=== PATIENT | male | born 1985 | race Caucasian/White ===

== ENCOUNTER 2021-03-02 13:03 | Inpatient (IN) | payer OTHER ==
[2021-03-02 13:28] LABS: BASO % 0.4 % (0-2.0); EOS % 0.1 % (0-4.5); HEMATOCRIT 53.3 % (35.4-49); HEMOGLOBIN 17.7 GM/dL (11.7-16.9); LYMPH % 12.7 % (8-40); MCH 27.5 pg (25.7-33.7); MCHC 33.2 g/dl (32.0-35.9); MEAN CELL VOLUME 82.9 fl (80-96); MEAN PLT VOLUME 8.5 fl (7.5-11.1); MONO % 2.3 % (3.8-10.2); NEUT % 84.5 % (42.8-82.8); PLATELET COUNT 415 K/MM3 (134-434); RBC 6.43 M/mm3 (4.00-5.60); RDW 17.5 % (11.9-15.9); WHITE BLOOD COUNT 11.4 K/mm3 (4.0-10.0)
[2021-03-02] MEDS ORDERED: LORazepam 2 MG/ML SDV VIAL IVPUSH ONE ×3 (13:30→15:59)
[2021-03-02] MEDS ORDERED: LORazepam 2 MG/ML SDV VIAL ONE ×2 (13:32→15:52)
[2021-03-02] MEDS ORDERED: LACTATED RINGERS SOLUTION 1000 ML INFUS.BAG IV ONE ×2 (13:42→15:39)
[2021-03-02 13:46] LABS: CHLORIDE 102 mmol/L (98-107); POTASSIUM 4.2 mmol/L (3.5-5.1); SODIUM 139 mmol/L (136-145)
[2021-03-02 13:48] LABS: ALBUMIN 3.7 g/dl (3.4-5.0); ANION GAP 18 MMOL/L (8-16); CALCIUM 9.7 mg/dL (8.5-10.1); CO2 19 mmol/L (21-32)
[2021-03-02 13:49] LABS: BLOOD UREA NITROGEN 9.9 mg/dL (7-18); GLUCOSE,RANDOM 169 mg/dL (74-106); MAGNESIUM 2.7 mg/dL (1.8-2.4)
[2021-03-02 13:52] LABS: CREATININE 1.5 mg/dL (0.55-1.3); PHOSPHOROUS 2.4 mg/dL (2.5-4.9); SGOT/AST 35 U/L (15-37); SGPT/ALT 90 U/L (13-61)
[2021-03-02 13:53] LABS: BILIRUBIN,TOTAL 0.4 mg/dL (0.2-1); TOT PROT 7.8 g/dl (6.4-8.2)
[2021-03-02 13:54] LABS: ALK PHOS 77 U/L (45-117)
[2021-03-02] MEDS: SODIUM CHLORIDE 1,000 ML IV SCH (20:04)
[2021-03-02 21:32] LABS: EPI CELLS 13 /uL (0-25.1); HYALINE CASTS 2 /uL (0-3.1); URINE APPEARANCE CLEAR; URINE BACTERIA 4 /uL (0-1359); URINE BILIRUBIN NEGATIVE (NEGATIVE); URINE COLOR YELLOW; URINE GLUCOSE (UA) NEGATIVE (NEGATIVE); URINE KETONE NEGATIVE (NEGATIVE); URINE LEUK ESTERASE NEGATIVE (NEGATIVE); URINE NITRITE NEGATIVE (NEGATIVE); URINE PROTEIN 2+ (NEGATIVE); URINE RBC 20 /uL (0-23.9); URINE WBC 8 /uL (0-25.8)
[2021-03-02 21:55] LABS: COCAINE, UR NEGATIVE ng/ml (CUTOFF=300); METHADONE, UR NEGATIVE ng/ml (CUTOFF=300); URINE BARBITURATES NEGATIVE ng/ml (CUTOFF=200)
[2021-03-02 21:56] LABS: OPIATES, URI NEGATIVE ng/ml (CUTOFF=300); PHENCYCLIDINE,URINE NEGATIVE ng/ml (CUTOFF=25)
[2021-03-02 21:58] LABS: URINE AMPHETAMINES POSITIVE ng/ml (CUTOFF=500); URINE BENZODIAZEPINES POSITIVE ng/ml (CUTOFF=200)
[2021-03-02] MEDS ORDERED: clonazePAM 0.5 MG TABLET ONE (22:16)
[2021-03-02] MEDS: clonazePAM 0.5 MG TABLET PO SCH (22:19)
[2021-03-03 08:17] LABS: BASO % 0.6 % (0-2.0); EOS % 0.8 % (0-4.5); HEMATOCRIT 48.8 % (35.4-49); HEMOGLOBIN 16.3 GM/dL (11.7-16.9); LYMPH % 24.1 % (8-40); MCH 27.5 pg (25.7-33.7); MCHC 33.4 g/dl (32.0-35.9); MEAN CELL VOLUME 82.4 fl (80-96); MEAN PLT VOLUME 8.7 fl (7.5-11.1); MONO % 7.3 % (3.8-10.2); NEUT % 67.2 % (42.8-82.8); PLATELET COUNT 331 K/MM3 (134-434); RBC 5.92 M/mm3 (4.00-5.60); RDW 17.4 % (11.9-15.9)
[2021-03-03 08:19] LABS: POTASSIUM 4.5 mmol/L (3.5-5.1)
[2021-03-03 08:27] LABS: ALBUMIN 3.2 g/dl (3.4-5.0); BLOOD UREA NITROGEN 8.7 mg/dL (7-18); CALCIUM 8.7 mg/dL (8.5-10.1); MAGNESIUM 2.3 mg/dL (1.8-2.4)
[2021-03-03 08:30] LABS: CREATININE 0.9 mg/dL (0.55-1.3)
[2021-03-03 08:31] LABS: PHOSPHOROUS 3.3 mg/dL (2.5-4.9)
[2021-03-03 08:32] LABS: BILIRUBIN,TOTAL 1.4 mg/dL (0.2-1); TOT PROT 6.6 g/dl (6.4-8.2)
[2021-03-03] MEDS ORDERED: LISDEXAMFETAMINE DIMESYLATE 60 MG PO SCH (10:00)
[2021-03-03] MEDS ORDERED: clonazePAM 0.5 MG TABLET ONE ×2 (10:08→21:21)
[2021-03-03] MEDS: clonazePAM 0.5 MG TABLET PO SCH ×2 (10:16→21:32)
[2021-03-03] MEDS: SODIUM CHLORIDE 1,000 ML IV SCH (21:18)
[2021-03-03] MEDS ORDERED: ENOXAPARIN NA (PORCINE) 40 MG/0.4 ML DISP.SYRIN SQ ONE (21:21)
[2021-03-03] MEDS: ENOXAPARIN NA (PORCINE) 40 MG/0.4 ML DISP.SYRIN SQ SCH (21:32)
[2021-03-04 00:59] VITALS: BMI 29.6
[2021-03-04] MEDS ORDERED: LORazepam 1 MG TABLET PO ONE (02:30)
[2021-03-04 07:43] LABS: BASO % 0.6 % (0-2.0); EOS % 0.4 % (0-4.5); HEMATOCRIT 49.8 % (35.4-49); LYMPH % 28.9 % (8-40); MCH 27.9 pg (25.7-33.7); MCHC 34.1 g/dl (32.0-35.9); MEAN PLT VOLUME 8.8 fl (7.5-11.1); MONO % 7.3 % (3.8-10.2); NEUT % 62.8 % (42.8-82.8); PLATELET COUNT 349 K/MM3 (134-434); POTASSIUM 4.3 mmol/L (3.5-5.1); RBC 6.08 M/mm3 (4.00-5.60); RDW 17.4 % (11.9-15.9); WHITE BLOOD COUNT 8.8 K/mm3 (4.0-10.0)
[2021-03-04 07:50] LABS: ALBUMIN 3.4 g/dl (3.4-5.0)
[2021-03-04 07:52] LABS: TOT PROT 7.1 g/dl (6.4-8.2)
[2021-03-04 07:53] LABS: CALCIUM 9.2 mg/dL (8.5-10.1); CREATININE 0.9 mg/dL (0.55-1.3); MAGNESIUM 2.1 mg/dL (1.8-2.4); PHOSPHOROUS 3.8 mg/dL (2.5-4.9)
[2021-03-04] MEDS ORDERED: clonazePAM 2 MG TABLET PO ONE (08:45)
[2021-03-04] MEDS: ENOXAPARIN NA (PORCINE) 40 MG/0.4 ML DISP.SYRIN SQ SCH (09:50)
[2021-03-04 17:30] LABS: URINE AMPHETAMINES NEGATIVE ng/ml (CUTOFF=500); URINE BARBITURATES NEGATIVE ng/ml (CUTOFF=200)
[2021-03-04 17:31] LABS: COCAINE, UR NEGATIVE ng/ml (CUTOFF=300); METHADONE, UR NEGATIVE ng/ml (CUTOFF=300); OPIATES, URI NEGATIVE ng/ml (CUTOFF=300); PHENCYCLIDINE,URINE NEGATIVE ng/ml (CUTOFF=25); URINE BENZODIAZEPINES POSITIVE ng/ml (CUTOFF=200)
[2021-03-04] MEDS ORDERED: PT OWN MED DRAWER 7, Y5N ONE (21:02)
[2021-03-04] MEDS ORDERED: MELATONIN 5 MG TABLETS PO SCH (22:00)
[2021-03-04] MEDS: clonazePAM 0.5 MG TABLET PO SCH (22:04)
[2021-03-05 07:39] LABS: BASO % 0.7 % (0-2.0); EOS % 0.8 % (0-4.5); HEMATOCRIT 53.7 % (35.4-49); HEMOGLOBIN 17.8 GM/dL (11.7-16.9); LYMPH % 28.6 % (8-40); MCH 27.5 pg (25.7-33.7); MCHC 33.2 g/dl (32.0-35.9); MEAN CELL VOLUME 82.9 fl (80-96); MEAN PLT VOLUME 8.8 fl (7.5-11.1); NEUT % 61.9 % (42.8-82.8); PLATELET COUNT 362 K/MM3 (134-434); RBC 6.48 M/mm3 (4.00-5.60); RDW 17.8 % (11.9-15.9); WHITE BLOOD COUNT 8.9 K/mm3 (4.0-10.0)
[2021-03-05 07:54] LABS: POTASSIUM 4.3 mmol/L (3.5-5.1)
[2021-03-05 08:03] LABS: ALBUMIN 3.6 g/dl (3.4-5.0); CALCIUM 9.8 mg/dL (8.5-10.1)
[2021-03-05 08:04] LABS: BLOOD UREA NITROGEN 11.5 mg/dL (7-18); MAGNESIUM 2.4 mg/dL (1.8-2.4)
[2021-03-05 08:07] LABS: CREATININE 0.9 mg/dL (0.55-1.3); PHOSPHOROUS 5.2 mg/dL (2.5-4.9)
[2021-03-05 08:08] LABS: BILIRUBIN,TOTAL 1.3 mg/dL (0.2-1); TOT PROT 7.4 g/dl (6.4-8.2)
[2021-03-05] MEDS: ENOXAPARIN NA (PORCINE) 40 MG/0.4 ML DISP.SYRIN SQ SCH (09:11)
[2021-03-05] MEDS: clonazePAM 0.5 MG TABLET PO SCH (09:12)
[2021-03-05 15:07] VITALS: BP 143/93; PULSE 99; TEMP 98.4
== END 2021-03-05 18:27 | disposition home or self-care (01) | DRG 776 ==
LOC: JER 13:03 → JERBED 13:44 → J4W 03-03 23:19
PROVIDERS: ADMIT Family Medicine; ATTEND Internal Medicine
DX: F13.230 Sedative, hypnotic or anxiolytic dependence with withdrawal, uncomplicated (principal); N17.9 Acute kidney failure, unspecified; E86.0 Dehydration; G40.89 Other seizures; R74.01 Elevation of levels of liver transaminase levels; F19.10 Other psychoactive substance abuse, uncomplicated; K83.9 Disease of biliary tract, unspecified
CPT/HCPCS: 36415; 70450-TC; 71045-TC-FY; 74181-TC; 76705-TC; 80053; 80074; 80307; 81003; 82550; 82553; 83735; 84100; 84484; 85025; 87086; 93005; 93010; 99285-25; C9803; U0003; U0005